=== PATIENT | female | born 1930 | race Caucasian/White ===

== ENCOUNTER 2017-02-26 23:53 | Inpatient (IN) | payer MEDICARE, OTHER ==
[~2017-02-26] VITALS: Ht 152.4 cm; Wt 86.3 kg
[~2017-02-26 23:53] MED LIST: ACET65TA OR; ADVI200T PO; ALBUTEROL NEB INH; ALPR0.5T3 PO; AMBI10TA OR; AMBI5TAB PO; AMLO10TA2 PO; ASPI325T PO; CEFT500T OR; DIOV320T OR; DIOV320T PO; HYDR10TAB PO; HYDR25TA6 PO; HYDR25TAB PO; IMDU30TA PO; ISOS30BRAN OR; LEVO2TA OR; LEVO50TA5 PO; LEVOXYL PO; MUCINEX OR; NITR0.4S SL; NITR4TASL SL; NYSTATIN ORAL SUSP OR; PAXI10TA OR; PRED10TA2 OR; SIMV20TA2 PO; SPIR25TA2 OR; TEKT300T PO; TEKTURNA PO; TOPR50TA OR; TOPRAL XL PO; VALS40TA OR; VESICARE OR; XANA0.5T OR; [UNRECOGNIZED DRUG - CODE] PO; [UNRECOGNIZED DRUG - OTHER] PO
[2017-02-27] MEDS ORDERED: ALLO100T PO (00:14)
[2017-02-27] MEDS ORDERED: CLOP75TA2 PO (00:14)
[2017-02-27] MEDS ORDERED: AMLO5TAB2 PO (00:14)
[2017-02-27] MEDS ORDERED: METO-207 PO (00:14)
[2017-02-27] MEDS ORDERED: ZOLP5TAB PO (00:14)
[2017-02-27] MEDS ORDERED: LEVO150T7 PO (00:14)
[2017-02-27] MEDS ORDERED: LATA5OPD OU (00:14)
[2017-02-27] MEDS ORDERED: VALS1TAB48 PO (00:14)
[2017-02-27] MEDS ORDERED: ESCI10TA2 (00:14)
[2017-02-27] MEDS ORDERED: ISOS60TA2 PO (00:14)
[2017-02-27] MEDS ORDERED: ACETAMINOPHEN TAB 650MG DOSE (2X325MG) PO ONE (00:15)
[2017-02-27] MEDS: IPRATROPIUM 0.5MG/ALBUTEROL 2.5MG INH SOL UD 3ML (DUONEB)(J7620) NEB SCH ×9 (00:44→23:32)
[2017-02-27 00:47] LABS: BASO % 0.2 % (0.0-1.0); EOS # 0.1 K/mm3 (0.0-0.50); EOS % 0.6 % (0.0-3.0); LARGE UNSTAINED CELL # 0.2 K/mm3 (0.0-0.4); LARGE UNSTAINED CELL % 1.2 % (0.0-4.0); LYMPH # 1.4 K/mm3 (1.5-4.5); LYMPH % 8.3 % (24.0-44.0); MEAN CORPUSCULAR HEMOGLOBIN 29.8 pg (27.0-33.0); MEAN CORPUSCULAR HGB CONC 32.8 g/dl (32.0-36.5); MEAN CORPUSCULAR VOLUME 90.9 fl (80.0-96.0); MONO # 0.6 K/mm3 (0.0-0.8); MONO % 3.9 % (0.0-5.0); NEUTROPHILS # 13.9 K/mm3 (1.8-7.7); NEUTROPHILS % 85.8 % (36.0-66.0); PLATELET COUNT, AUTOMATED 214 k/mm3 (150-450); RED CELL DISTRIBUTION WIDTH 14.2 % (11.5-14.5); WHITE BLOOD COUNT 16.2 K/mm3 (4.0-10.0)
[2017-02-27 01:08] LABS: CALCIUM LEVEL 8.9 MG/DL (8.8-10.2); CREATININE FOR GFR 1.19 MG/DL (0.55-1.02); GLOMERULAR FILTRATION RATE 45.8 (>32); POTASSIUM SERUM 3.9 MEQ/L (3.5-5.1)
[2017-02-27] MEDS ORDERED: CEFUROXIME SODIUM 750 MG in D5W MINI-BAG PLUS 50 ML IV ONE (01:15)
[2017-02-27] MEDS ORDERED: dexameTHASONE 20 MG/5 ML VIAL (J1100) IV ONE ×2 (01:15→01:30)
[2017-02-27] MEDS ORDERED: AZITHROMYCIN INJ 500 MG, VIAL MATE ADAPTER 1 EACH in D5W 250 ML IV ONE (01:15)
[2017-02-27] MEDS ORDERED: NS 500 ML IV ONE (01:30)
[2017-02-27] MEDS ORDERED: ALBUTEROL SULFATE 2.5 MG/0.5 ML INH NEB SOLN INH PRN (01:45)
[2017-02-27] MEDS ORDERED: ACETAMINOPHEN TAB 650MG DOSE (2X325MG) PO PRN (01:45)
[2017-02-27] MEDS ORDERED: ONDANSETRON 4MG/2ML VIAL (J2405) IV PRN (01:45)
[2017-02-27] MEDS ORDERED: OCUVTAB PO (01:57)
[2017-02-27] MEDS ORDERED: ARTI99.0 OU (01:57)
[2017-02-27] MEDS ORDERED: TYLE500T78 PO (01:57)
[2017-02-27] MEDS ORDERED: SIMV20TA2 PO (01:57)
--- NOTE | 2017-02-27 02:30 | REPUSA ---
CLINICAL HISTORY: SOB. TECHNIQUE: Multiple axial CT images were obtained through chest without IV contrast material. MPR cor onal and sagittal sequences were obtained. COMMENTS: There is no evidence of pleural or parenchymal mass. There are no pleural effusions. There is no evid ence of hilar or mediastinal lymphadenopathy. The heart is enlarged. MIld pulmonary venous congestiv e changes are seen. Coronary calcifications are noted. Mitral valve calcifications are seen. There are increased interstitial lung markings noted compatible with pulmonary fibrosis. The visualized portions of the liver are of uniform attenuation without mass or defect. There is no i ntra or extrahepatic biliary ductal dilatation. The spleen is unremarkable. The visualized pancreas i s of normal contour and attenuation characteristics. There is no evidence of adrenal mass. Bilateral renal cysts are noted. The bony structures are free of lytic or blastic lesions. Multilevel degenerative changes are seen in volving the thoracic spine. Scattered calcifications are seen involving the aorta and visualized laura r branches compatible with atherosclerosis. IMPRESSION: The heart is enlarged. MIld pulmonary venous congestive changes are seen. There are increased interstitial lung markings noted compatible with pulmonary fibrosis. Thank you for your kind referral of this patient.
[2017-02-27 02:42] VITALS: BP 163/83
[2017-02-27] MEDS ORDERED: NITROGLYCERIN 0.4 MG SUBL TABLET SL PRN (02:45)
[2017-02-27] MEDS ORDERED: POLYVINYL ALCOHOL OPHTH SOLN 15 ML(LIQUITEARS) OU PRN (02:45)
[2017-02-27] MEDS ORDERED: zolPIDEM TARTRATE 5 MG TAB PO PRN (02:45)
--- NOTE | 2017-02-27 02:45 | HPEPDOC ---
General Date of Admission Feb 27, 2017 at 01:58 Primary Care Physician: Jr Alvarenga Collins Attending Physician: JOSTIN SANTO MD Chief Complaint The patient is a 86-year-old female admitted with a reason for visit of Community Acquired Pneumonia. Source: Patient Exam Limitations: No limitations History of Present Illness 86-year-old female with past medical hypertension, dyslipidemia, CAD, hypothyroidism, anxiety/depression, remote history of asthma, chronic kidney disease, and gout presents to the ER with the chief complaint of progressive dyspnea and productive cough over the last 3-4 days. The patient states that during this time she has also felt febrile and an overall feeling of lethargy/ fatigue. She denies any sick contacts, recent travel, or any increase in lower extremity swelling, PND, or orthopnea. In addition, the patient denies any acute complaints of chest pain, palpitations, abdominal pain, or any nausea/ vomiting/diarrhea. In the ER, a chest x-ray was notable chronic interstitial changes and a possible infiltrate on the left. Clinically, the patient was requiring 4 L of oxygen via nasal cannula, when at baseline she does not require any oxygen at all. The patient will be admitted with a diagnosis of hypoxic respiratory failure secondary to community acquired pneumonia under the service of Dr. Santo, who will begin to follow the patient on 02/27/17 at 7 AM. Home Medications Scheduled Allopurinol (Allopurinol) 100 Mg Tab 100 MG PO DAILY (Reported) Amlodipine Besylate (Amlodipine Besylate) 5 Mg Tab 5 MG PO DAILY (Reported) Clopidogrel Bisulfate (Clopidogrel) 75 Mg Tab 75 MG PO DAILY (Reported) Isosorbide Mononitrate (Isosorbide Mononitrate ER) 60 Mg Tab 60 MG PO DAILY ( Reported) Latanoprost (Latanoprost) 50 Drop/2.5 Ml Soln 1 DROP OU QHS (Reported) Levothyroxine Sodium (Synthroid) 150 Mcg Tab 150 MCG PO DAILY (Reported) Metoprolol Succinate (Metoprolol Succinate ER) 50 Mg Tab 50 MG PO DAILY ( Reported) LUNCHTIME Multivitamins (Ocuvite) 1 Tab Tab 1 TAB PO DAILY (Reported) Simvastatin (Simvastatin) 20 Mg Tab 20 MG PO DAILY (Reported) LUNCHTIME Valsartan (Valsartan) 320 Mg Tab 320 MG PO DAILY (Reported) Scheduled PRN Acetaminophen (Tylenol Extra Strength) 500 Mg Tab 1,000 MG PO Q6H PRN PRN PAIN ( Reported) Alprazolam (Alprazolam) 0.5 Mg Tab 0.5 MG PO QID PRN PRN ANXIETY (Reported) Artificial Tears (Artificial Tears) 1.4 % Margot 1 DROP OU QID PRN PRN DRY EYES ( Reported) Nitroglycerin (Nitrostat) 0.4 Mg Subl 0.4 MG SL NITRO PRN PRN CHEST PAIN ( Reported) Zolpidem Tartrate (Zolpidem Tartrate) 5 Mg Tab 5 MG PO QHS PRN PRN SLEEP ( Reported) Allergies Coded Allergies: Sulfa Drugs (Verified Adverse Reaction, Intermediate, PASSES OUT, 02/07/13) Sulfa Drugs Cross Reactors (Verified Adverse Reaction, Intermediate, PASSES OUT, 02/07/13) Past Medical History Medical History As noted in HPI. Surgical History Bilateral knee surgery, cholecystectomy Family History Significant Family History: No pertinent family hx Social History * Smoker: other (smoked half a pack a day for 40+ years, quit smoking 25 years ago.) Alcohol: Denies Drugs: denies Lives at home alone, is independent with her activities of daily living, does not require any assistive devices for ambulation. Review of Symptoms Other systems 10 point review of systems negative unless otherwise specified in HPI. Physical Examination General Exam: Positive: Alert, Cooperative, No Acute Distress ENT Exam: Positive: Atraumatic, Mucous membr. moist/pink Neck Exam: Negative: JVD Chest Exam: Positive: Diminished, Other (faint bibasilar crackles noted), Rhonchi, Wheezing Heart Exam: Positive: Normal S1, Normal S2, Tachycardic Telemetry: Positive: Sinus Abdomen Exam: Positive: Soft, Negative: Tenderness Extremity Exam: Negative: Swelling, Tenderness Psych Exam: Positive: Oriented x 3 Vital Signs Vital Signs Date Time Temp Pulse Resp B/P Pulse Ox O2 Delivery O2 Flow Rate FiO2 02/27/17 02:15 24 98 Nasal Cannula 4 02/27/17 01:54 98.3 02/27/17 00:00 105 139/86 Laboratory Data Labs 24H Laboratory Tests 2 02/27/17 00:26: Anion Gap 9, White Blood Count 16.2H, Red Blood Count 3.91L, Hemoglobin 11.6L, Hematocrit 35.5L, Mean Corpuscular Volume 90.9, Mean Corpuscular Hemoglobin 29.8 , Mean Corpuscular Hemoglobin Concent 32.8, Red Cell Distribution Width 14.2, Platelet Count 214, Neutrophils (%) (Auto) 85.8H, Lymphocytes (%) (Auto) 8.3L, Monocytes (%) (Auto) 3.9, Eosinophils (%) (Auto) 0.6, Basophils (%) (Auto) 0.2, Neutrophils # (Auto) 13.9H, Lymphocytes # (Auto) 1.4L, Monocytes # (Auto) 0.6, Eosinophils # (Auto) 0.1, Basophils # (Auto) 0.0, Blood Urea Nitrogen 28H, Creatinine 1.19H, Sodium Level 140, Potassium Level 3.9, Chloride Level 106, Carbon Dioxide Level 25, Calcium Level 8.9, Glomerular Filtration Rate 45.8, Lactic Acid Level 2.1*H, Large Unclassified Cells # 0.2, Large Unclassified Cells % 1.2 CBC/BMP Laboratory Tests 02/27/17 00:26 Calcium Level 8.9, Red Blood Count 3.91 L, Mean Corpuscular Volume 90.9, Mean Corpuscular Hemoglobin 29.8, Mean Corpuscular Hemoglobin Concent 32.8, Red Cell Distribution Width 14.2, Neutrophils (%) (Auto) 85.8 H, Lymphocytes (%) (Auto) 8.3 L, Monocytes (%) (Auto) 3.9, Eosinophils (%) (Auto) 0.6, Basophils (%) (Auto ) 0.2, Neutrophils # (Auto) 13.9 H, Lymphocytes # (Auto) 1.4 L, Monocytes # ( Auto) 0.6, Eosinophils # (Auto) 0.1, Basophils # (Auto) 0.0 Microbiology Microbiology 02/27/17 Blood Culture, Received Pending 02/27/17 Blood Culture, Received Pending 02/27/17 Influenza Virus Type A Antigen - Final, Complete 02/27/17 Influenza Virus Type B Antigen - Final, Complete Plan / VTE VTE Prophylaxis Ordered?: Yes Plan Plan Hypoxic respiratory failure likely secondary to Community-Acquired Pneumonia, underlying interstitial lung disease Chest x-ray notable for changes consistent with chronic interstitial lung disease Blood cultures, sputum cultures, respiratory panel ordered We will empirically start the patient on Rocephin and azithromycin Nebs, Acapella, incentive spirometry order Status post one-time dose of IV dexamethasone in the ER given the patient's remote history of asthma, and wheezing on exam CT scan of the chest ordered for further delineation of underlying disease process We will continue to monitor the patient's respiratory status and down titrate supplemental oxygen as titrated Leukocytosis, lactic acidosis Likely secondary to above, and increased work of breathing Cultures have been ordered, and empiric antibody therapy has been initiated Gentle IV fluid hydration We will follow-up on a repeat lactic acid level, and await culture results Hypertension, stable Continue Norvasc, valsartan, metoprolol Dyslipidemia Continue statin CAD, stable Denies any chest pain, EKG with no acute ST changes Continue Plavix, metoprolol, statin Hypothyroidism Continue levothyroxine Anxiety/depression Continue current regimen as ordered Remote history of asthma Albuterol ordered as noted above Chronic kidney disease Serum creatinine appears to be at baseline Gout Continue allopurinol DVT prophylaxis-heparin subcutaneously The patient will be admitted under the service of Dr. Santo, who will begin to follow the patient on 02/27/17 at 7am Update--Respiratory Panel positive for Parainfluenza. At this time we will discontinue antibiotics and provide supportive treatment. URI RITTER MD Feb 27, 2017 02:45
[2017-02-27] MEDS: ALPRAZolam 0.5 MG TAB PO PRN ×2 (02:57→21:27)
[2017-02-27] MEDS: NS 1,000 ML IV SCH ×2 (02:58→16:03)
[2017-02-27 05:37] LABS: MEAN CORPUSCULAR HEMOGLOBIN 29.2 pg (27.0-33.0); MEAN CORPUSCULAR HGB CONC 32.6 g/dl (32.0-36.5); MEAN CORPUSCULAR VOLUME 89.6 fl (80.0-96.0); WHITE BLOOD COUNT 17.1 K/mm3 (4.0-10.0)
[2017-02-27] MEDS ORDERED: FUROSEMIDE 20 MG/2 ML VIAL (J1940) IV ONE (05:45)
[2017-02-27 05:50] LABS: CALCIUM LEVEL 8.3 MG/DL (8.8-10.2); CREATININE FOR GFR 1.32 MG/DL (0.55-1.02); GLOMERULAR FILTRATION RATE 40.6 (>32); MAGNESIUM LEVEL 1.4 MG/DL (1.8-2.4); POTASSIUM SERUM 3.6 MEQ/L (3.5-5.1)
[2017-02-27 06:00] VITALS: BP 131/63
[2017-02-27] MEDS ORDERED: cefTRIAXone SOD 1 GM in D5W MINI-BAG PLUS 50 ML IV SCH (06:00)
[2017-02-27] MEDS: HEPARIN SOD (PORCINE) 5000 UNITS/ML VIAL SC SCH ×3 (06:15→21:27)
[2017-02-27] MEDS: LEVOTHYROXINE 0.15 MG TAB (150 MCG) PO SCH (06:15)
--- NOTE | 2017-02-27 08:08 | REP ---
Portable chest, single frontal view, patient sitting: Comparisons 09/29/2015. There is chronic cardiomegaly. There is mild interstitial coarsening, decreased from the prior study. No pleural effusions are identified. Signed by Brandon Ramirez MD 02/27/2017 07:59 A
[2017-02-27] MEDS: OCUVITE 1 TAB PO SCH (08:47)
[2017-02-27] MEDS: methylPREDNISolone INJ 40 MG/1 ML VIAL (J2920) IV SCH ×2 (08:47→21:27)
[2017-02-27] MEDS: ALLOPURINOL 100 MG TAB PO SCH (08:47)
[2017-02-27] MEDS: METOPROLOL SUCC (TopROL XL) 50MG **XL** TAB PO SCH (08:48)
[2017-02-27] MEDS: amLODIPine 5 MG TAB PO SCH (08:48)
[2017-02-27] MEDS: ISOSORBIDE MON. (IMDUR) 60 MG XR TAB PO SCH (08:48)
[2017-02-27] MEDS: CLOPIDOGREL 75 MG TAB PO SCH (08:49)
[2017-02-27] MEDS: SIMVASTATIN 20 MG TAB PO SCH (08:49)
--- NOTE | 2017-02-27 11:38 | IPNPDOC ---
Subjective Date Seen The patient was seen on 02/27/17. Subjective Chief Complaint/HPI The patient is a 86-year-old female admitted with a reason for visit of Community Acquired Pneumonia. Events since last encounter still wheezing and SOB but says feels much better compared to yesterday, no fever or chills, still has wheezing, no chast pain, no abdominal pain nausea or vomiting. Objective Physical Examination General Exam: Positive: Alert, Cooperative, No Acute Distress ENT Exam: Positive: Atraumatic, Mucous membr. moist/pink Neck Exam: Negative: JVD Chest Exam: Positive: Diminished, Other (faint bibasilar crackles noted), Rhonchi, Wheezing Heart Exam: Positive: Normal S1, Normal S2, Tachycardic Telemetry: Positive: Sinus Abdomen Exam: Positive: Soft, Negative: Tenderness Extremity Exam: Negative: Swelling, Tenderness Psych Exam: Positive: Oriented x 3 Assessment /Plan Problems (1) Parainfluenza infection Status: Acute Problem Text: CT chest did not show any pneumonia. so antibiotics dced. (2) Acute respiratory failure with hypoxia Status: Acute Problem Text: due to PArainfluenza causing acute bronchospasm will continue with nebs, steroids. will continue with oxygen (3) Lactic acidosis Status: Acute Problem Text: due to increased work of breathing will continue with ivf and treatment for acute respiratory failure. (4) HTN (hypertension) Status: Chronic (5) Aortic stenosis Status: Chronic (6) Pulmonary HTN Status: Chronic (7) Gout Status: Chronic (8) CAD (coronary artery disease) Status: Chronic (9) CKD (chronic kidney disease), stage III Status: Chronic (10) Hypothyroid Status: Chronic Plan/VTE VTE Prophylaxis Ordered?: Yes VS, I&O, 24H, [facility] Signs/I&O Vital Signs Date Time Temp Pulse Resp B/P Pulse Ox O2 Delivery O2 Flow Rate FiO2 02/27/17 08:48 92 134/63 02/27/17 06:00 97.3 20 97 Nasal Cannula 1.0 I&O- Last 24 Hours up to 6 AM 02/27/17 06:00 Intake Total 170 ml Output Total 0 ml Balance 170 ml Laboratory Data 24H LABS Laboratory Tests 2 02/27/17 00:26: Anion Gap 9, White Blood Count 16.2H, Red Blood Count 3.91L, Hemoglobin 11.6L, Hematocrit 35.5L, Mean Corpuscular Volume 90.9, Mean Corpuscular Hemoglobin 29.8 , Mean Corpuscular Hemoglobin Concent 32.8, Red Cell Distribution Width 14.2, Platelet Count 214, Neutrophils (%) (Auto) 85.8H, Lymphocytes (%) (Auto) 8.3L, Monocytes (%) (Auto) 3.9, Eosinophils (%) (Auto) 0.6, Basophils (%) (Auto) 0.2, Neutrophils # (Auto) 13.9H, Lymphocytes # (Auto) 1.4L, Monocytes # (Auto) 0.6, Eosinophils # (Auto) 0.1, Basophils # (Auto) 0.0, Blood Urea Nitrogen 28H, Creatinine 1.19H, Sodium Level 140, Potassium Level 3.9, Chloride Level 106, Carbon Dioxide Level 25, Calcium Level 8.9, Glomerular Filtration Rate 45.8, Lactic Acid Level 2.1*H, Large Unclassified Cells # 0.2, Large Unclassified Cells % 1.2 02/27/17 05:23: Anion Gap 11, Blood Urea Nitrogen 27H, Creatinine 1.32H, Sodium Level 138, Potassium Level 3.6, Chloride Level 105, Carbon Dioxide Level 22, Calcium Level 8.3L, Glomerular Filtration Rate 40.6, Lactic Acid Level 2.1*H, Magnesium Level 1.4L 02/27/17 09:45: Lactic Acid Followup at 4 Hours 2.8*H CBC/BMP Laboratory Tests 02/27/17 00:26 Calcium Level 8.9, Red Blood Count 3.91 L, Mean Corpuscular Volume 90.9, Mean Corpuscular Hemoglobin 29.8, Mean Corpuscular Hemoglobin Concent 32.8, Red Cell Distribution Width 14.2, Neutrophils (%) (Auto) 85.8 H, Lymphocytes (%) (Auto) 8.3 L, Monocytes (%) (Auto) 3.9, Eosinophils (%) (Auto) 0.6, Basophils (%) (Auto ) 0.2, Neutrophils # (Auto) 13.9 H, Lymphocytes # (Auto) 1.4 L, Monocytes # ( Auto) 0.6, Eosinophils # (Auto) 0.1, Basophils # (Auto) 0.0 02/27/17 05:23 Calcium Level 8.3 L, Red Blood Count 3.58 L, Mean Corpuscular Volume 89.6, Mean Corpuscular Hemoglobin 29.2, Mean Corpuscular Hemoglobin Concent 32.6, Red Cell Distribution Width 14.0 Microbiology Microbiology 02/27/17 Blood Culture, Received Pending 02/27/17 Blood Culture, Received Pending 02/27/17 Respiratory Virus Panel (PCR) ([facility]) - Final, Complete Parainfluenza 3 (Piv3) 02/27/17 Influenza Virus Type A Antigen - Final, Complete 02/27/17 Influenza Virus Type B Antigen - Final, Complete JOSTIN YAO MD Feb 27, 2017 11:38
[2017-02-27] MEDS: MAG SULF 1GM/100ML (MAG RUN) 1 GM in APPROPRIATE DILUENT 1 EA IV SCH ×2 (12:34→13:33)
[2017-02-27 14:00] VITALS: BP 126/58
[2017-02-27] MEDS: CEPACOL LOZENGE PO PRN ×2 (16:04→22:05)
[2017-02-27 20:45] VITALS: BP 163/73
[2017-02-27] MEDS: LATANOPROST 0.005% OPHTH SOLN 2.5 ML OU SCH (21:26)
[2017-02-28] MEDS ORDERED: AZITHROMYCIN INJ 500 MG, VIAL MATE ADAPTER 1 EACH in D5W 250 ML IV SCH ×3
[2017-02-28] MEDS: IPRATROPIUM 0.5MG/ALBUTEROL 2.5MG INH SOL UD 3ML (DUONEB)(J7620) NEB SCH ×6 (03:05→23:34)
[2017-02-28] MEDS ORDERED: FUROSEMIDE 40 MG/4 ML VIAL (J1940) IV ONE (04:15)
[2017-02-28] MEDS: LEVOTHYROXINE 0.15 MG TAB (150 MCG) PO SCH (05:24)
[2017-02-28] MEDS: HEPARIN SOD (PORCINE) 5000 UNITS/ML VIAL SC SCH ×3 (05:24→20:57)
[2017-02-28 06:00] VITALS: BP 146/67
[2017-02-28 06:00] LABS: MEAN CORPUSCULAR HEMOGLOBIN 28.8 pg (27.0-33.0); MEAN CORPUSCULAR HGB CONC 32.2 g/dl (32.0-36.5); MEAN CORPUSCULAR VOLUME 89.3 fl (80.0-96.0); RED CELL DISTRIBUTION WIDTH 14.2 % (11.5-14.5); WHITE BLOOD COUNT 20.6 K/mm3 (4.0-10.0)
[2017-02-28 06:11] LABS: CALCIUM LEVEL 8.6 MG/DL (8.8-10.2); CREATININE FOR GFR 1.21 MG/DL (0.55-1.02); GLOMERULAR FILTRATION RATE 44.9 (>32); POTASSIUM SERUM 4.1 MEQ/L (3.5-5.1)
--- NOTE | 2017-02-28 07:51 | IPNPDOC ---
Subjective Date Seen The patient was seen on 02/28/17. Subjective Chief Complaint/HPI The patient is a 86-year-old female admitted with a reason for visit of Community Acquired Pneumonia. Events since last encounter says feeling much better, though continues to have wheezing. no fever or chills , no chest pain , sob improving, no nausea or vomiting or diarrhea. Objective Physical Examination General Exam: Positive: Alert, Cooperative, No Acute Distress ENT Exam: Positive: Atraumatic, Mucous membr. moist/pink Neck Exam: Negative: JVD Chest Exam: Positive: Diminished, Other (faint bibasilar crackles noted), Rhonchi, Wheezing Heart Exam: Positive: Normal S1, Normal S2, Tachycardic Telemetry: Positive: Sinus Abdomen Exam: Positive: Soft, Negative: Tenderness Extremity Exam: Negative: Swelling, Tenderness Psych Exam: Positive: Oriented x 3 Assessment /Plan Problems (1) Parainfluenza infection Status: Acute Problem Text: CT chest did not show any pneumonia. so antibiotics dced. (2) Acute respiratory failure with hypoxia Status: Acute Problem Text: due to PArainfluenza causing acute bronchospasm will continue with nebs, steroids. will continue with oxygen (3) Lactic acidosis Status: Resolved Problem Text: due to increased work of breathing will continue with ivf and treatment for acute respiratory failure. (4) HTN (hypertension) Status: Chronic (5) Aortic stenosis Status: Chronic (6) Pulmonary HTN Status: Chronic (7) Gout Status: Chronic (8) CAD (coronary artery disease) Status: Chronic (9) CKD (chronic kidney disease), stage III Status: Chronic (10) Hypothyroid Status: Chronic Plan/VTE VTE Prophylaxis Ordered?: Yes Plan/Urinary Catheter Reason for insertion/continuin: Other-document below VS, I&O, 24H, Fishbone Vital Signs/I&O Vital Signs Date Time Temp Pulse Resp B/P Pulse Ox O2 Delivery O2 Flow Rate FiO2 02/28/17 06:00 98.9 97 19 146/67 97 Nasal Cannula 2.0 I&O- Last 24 Hours up to 6 AM 02/28/17 06:00 Intake Total 2925 ml Output Total 950 ml Balance 1975 ml Laboratory Data 24H LABS Laboratory Tests 2 02/27/17 09:45: Lactic Acid Followup at 4 Hours 2.8*H 02/27/17 15:59: Lactic Acid Level 3.3*H 02/27/17 21:30: Lactic Acid Level 1.4 02/28/17 05:41: Anion Gap 8, Blood Urea Nitrogen 30H, Creatinine 1.21H, Sodium Level 139, Potassium Level 4.1, Chloride Level 109H, Carbon Dioxide Level 22, Calcium Level 8.6L, Glomerular Filtration Rate 44.9, Magnesium Level 2.0 CBC/BMP Laboratory Tests 02/28/17 05:41 Calcium Level 8.6 L, Red Blood Count 3.33 L, Mean Corpuscular Volume 89.3, Mean Corpuscular Hemoglobin 28.8, Mean Corpuscular Hemoglobin Concent 32.2, Red Cell Distribution Width 14.2 Microbiology Microbiology 02/27/17 Blood Culture - Preliminary, Resulted No growth after 24 hours . All specim... 02/27/17 Blood Culture - Preliminary, Resulted No growth after 24 hours . All specim... 02/27/17 Gram Stain - Final, Resulted 02/27/17 Sputum Culture, Resulted Pending 02/27/17 Respiratory Virus Panel (PCR) ([facility]) - Final, Complete Parainfluenza 3 (Piv3) 02/27/17 Influenza Virus Type A Antigen - Final, Complete 02/27/17 Influenza Virus Type B Antigen - Final, Complete JOSTIN YAO MD Feb 28, 2017 07:51
[2017-02-28] MEDS: ISOSORBIDE MON. (IMDUR) 60 MG XR TAB PO SCH (09:00)
[2017-02-28] MEDS: methylPREDNISolone INJ 40 MG/1 ML VIAL (J2920) IV SCH ×2 (09:18→20:56)
[2017-02-28] MEDS: OCUVITE 1 TAB PO SCH (09:18)
[2017-02-28] MEDS: CLOPIDOGREL 75 MG TAB PO SCH (09:19)
[2017-02-28] MEDS: amLODIPine 5 MG TAB PO SCH (09:21)
[2017-02-28] MEDS: SIMVASTATIN 20 MG TAB PO SCH (09:21)
[2017-02-28] MEDS: ALLOPURINOL 100 MG TAB PO SCH (09:21)
[2017-02-28] MEDS: METOPROLOL SUCC (TopROL XL) 50MG **XL** TAB PO SCH (09:22)
[2017-02-28 14:00] VITALS: BP 133/64
[2017-02-28] MEDS: LATANOPROST 0.005% OPHTH SOLN 2.5 ML OU SCH (20:56)
[2017-02-28] MEDS: ALPRAZolam 0.5 MG TAB PO PRN (20:57)
[2017-02-28 22:00] VITALS: BP 129/56
[2017-02-28 22:25] VITALS: BP 181/51
[2017-03-01] MEDS: IPRATROPIUM 0.5MG/ALBUTEROL 2.5MG INH SOL UD 3ML (DUONEB)(J7620) NEB SCH ×5 (03:12→19:54)
[2017-03-01] MEDS: HEPARIN SOD (PORCINE) 5000 UNITS/ML VIAL SC SCH ×3 (05:58→21:16)
[2017-03-01] MEDS: LEVOTHYROXINE 0.15 MG TAB (150 MCG) PO SCH (05:58)
[2017-03-01 06:00] VITALS: BP 142/72
[2017-03-01 07:04] LABS: MEAN CORPUSCULAR HEMOGLOBIN 28.4 pg (27.0-33.0); MEAN CORPUSCULAR VOLUME 88.6 fl (80.0-96.0); RED CELL DISTRIBUTION WIDTH 14.2 % (11.5-14.5); WHITE BLOOD COUNT 16.8 K/mm3 (4.0-10.0)
[2017-03-01 07:07] LABS: CALCIUM LEVEL 8.9 MG/DL (8.8-10.2); CREATININE FOR GFR 1.14 MG/DL (0.55-1.02); GLOMERULAR FILTRATION RATE 48.1 (>32); POTASSIUM SERUM 4.5 MEQ/L (3.5-5.1)
[2017-03-01] MEDS: OCUVITE 1 TAB PO SCH (09:16)
[2017-03-01] MEDS: CLOPIDOGREL 75 MG TAB PO SCH (09:16)
[2017-03-01] MEDS: methylPREDNISolone INJ 40 MG/1 ML VIAL (J2920) IV SCH ×2 (09:16→21:15)
[2017-03-01] MEDS: ALLOPURINOL 100 MG TAB PO SCH (09:17)
[2017-03-01] MEDS: SIMVASTATIN 20 MG TAB PO SCH (09:17)
[2017-03-01] MEDS: METOPROLOL SUCC (TopROL XL) 50MG **XL** TAB PO SCH (09:18)
[2017-03-01] MEDS: amLODIPine 5 MG TAB PO SCH (09:18)
[2017-03-01] MEDS: VALSARTAN 80 MG TAB (DIOVAN) PO SCH (09:19)
[2017-03-01] MEDS: ISOSORBIDE MON. (IMDUR) 60 MG XR TAB PO SCH (09:19)
[2017-03-01 14:00] VITALS: BP 136/66
[2017-03-01] MEDS ORDERED: MOM 30ML SUSPENSION UDC PO PRN (15:00)
[2017-03-01] MEDS ORDERED: MIRALAX *UNIT DOSE* 17GM PACKET PO PRN (15:00)
[2017-03-01] MEDS: DOCUSATE SODIUM 100 MG CAP PO SCH (21:15)
[2017-03-01] MEDS: LATANOPROST 0.005% OPHTH SOLN 2.5 ML OU SCH (21:15)
[2017-03-01] MEDS: ALPRAZolam 0.5 MG TAB PO PRN (21:35)
[2017-03-01 22:00] VITALS: BP 146/77
[2017-03-02] MEDS: IPRATROPIUM 0.5MG/ALBUTEROL 2.5MG INH SOL UD 3ML (DUONEB)(J7620) NEB SCH ×7 (00:23→23:32)
[2017-03-02] MEDS: LEVOTHYROXINE 0.15 MG TAB (150 MCG) PO SCH (05:38)
[2017-03-02] MEDS: HEPARIN SOD (PORCINE) 5000 UNITS/ML VIAL SC SCH ×3 (05:39→21:03)
[2017-03-02 06:00] VITALS: BP 141/85
[2017-03-02 07:19] LABS: MEAN CORPUSCULAR HEMOGLOBIN 28.5 pg (27.0-33.0); MEAN CORPUSCULAR HGB CONC 31.9 g/dl (32.0-36.5); MEAN CORPUSCULAR VOLUME 89.1 fl (80.0-96.0); RED CELL DISTRIBUTION WIDTH 14.2 % (11.5-14.5); WHITE BLOOD COUNT 11.5 K/mm3 (4.0-10.0)
[2017-03-02 07:33] LABS: CALCIUM LEVEL 9.5 MG/DL (8.8-10.2); CREATININE FOR GFR 1.27 MG/DL (0.55-1.02); GLOMERULAR FILTRATION RATE 42.5 (>32); MAGNESIUM LEVEL 2.3 MG/DL (1.8-2.4)
[2017-03-02] MEDS: VALSARTAN 80 MG TAB (DIOVAN) PO SCH (09:01)
[2017-03-02] MEDS: methylPREDNISolone INJ 40 MG/1 ML VIAL (J2920) IV SCH (09:01)
[2017-03-02] MEDS: OCUVITE 1 TAB PO SCH (09:01)
[2017-03-02] MEDS: DOCUSATE SODIUM 100 MG CAP PO SCH ×2 (09:01→21:03)
[2017-03-02] MEDS: SIMVASTATIN 20 MG TAB PO SCH (09:01)
[2017-03-02] MEDS: amLODIPine 5 MG TAB PO SCH (09:02)
[2017-03-02] MEDS: ALLOPURINOL 100 MG TAB PO SCH (09:02)
[2017-03-02] MEDS: ISOSORBIDE MON. (IMDUR) 60 MG XR TAB PO SCH (09:03)
[2017-03-02] MEDS: CLOPIDOGREL 75 MG TAB PO SCH (09:03)
[2017-03-02] MEDS: METOPROLOL SUCC (TopROL XL) 50MG **XL** TAB PO SCH (09:03)
[2017-03-02] MEDS: ALPRAZolam 0.5 MG TAB PO PRN (13:50)
[2017-03-02 13:51] VITALS: BP 142/86
--- NOTE | 2017-03-02 16:59 | IPNPDOC ---
Subjective Date Seen The patient was seen on 03/02/17. Subjective Chief Complaint/HPI The patient is a 86-year-old female admitted with a reason for visit of Community Acquired Pneumonia. Objective Physical Examination General Exam: Positive: Alert, Cooperative, No Acute Distress ENT Exam: Positive: Atraumatic, Mucous membr. moist/pink Neck Exam: Negative: JVD Chest Exam: Positive: Rhonchi, Wheezing, Diminished, Other (faint bibasilar crackles noted) Heart Exam: Positive: Tachycardic, Normal S1, Normal S2 Telemetry: Positive: Sinus Abdomen Exam: Positive: Soft, Negative: Tenderness Extremity Exam: Negative: Tenderness, Swelling Psych Exam: Positive: Oriented x 3 Assessment /Plan Problems (1) Parainfluenza infection Status: Acute Problem Text: CT chest did not show any pneumonia. so antibiotics dced. (2) Acute respiratory failure with hypoxia Status: Acute Problem Text: due to PArainfluenza causing acute bronchospasm will continue with nebs, steroids. will continue with oxygen (3) Lactic acidosis Status: Resolved Problem Text: due to increased work of breathing will continue with ivf and treatment for acute respiratory failure. (4) HTN (hypertension) Status: Chronic (5) Aortic stenosis Status: Chronic (6) Pulmonary HTN Status: Chronic (7) Gout Status: Chronic (8) CAD (coronary artery disease) Status: Chronic (9) CKD (chronic kidney disease), stage III Status: Chronic (10) Hypothyroid Status: Chronic Plan/VTE VTE Prophylaxis Ordered?: Yes Plan/Urinary Catheter Reason for insertion/continuin: Other-document below VS, I&O, 24H, Fishbone Vital Signs/I&O Vital Signs Date Time Temp Pulse Resp B/P (MAP) Pulse Ox O2 Delivery O2 Flow Rate FiO2 03/02/17 14:00 97.9 102 20 93 Nasal Cannula 03/02/17 13:51 142/86 (104) 03/02/17 09:20 1.0 I&O- Last 24 Hours up to 6 AM 03/02/17 06:00 Intake Total 480 ml Output Total 950 ml Balance -470 ml Laboratory Data 24H LABS Laboratory Tests 2 03/02/17 06:47: Anion Gap 5L, Glomerular Filtration Rate 42.5, Blood Urea Nitrogen 51H, Creatinine 1.27H, Sodium Level 141, Potassium Level 5.0, Chloride Level 107, Carbon Dioxide Level 29, Calcium Level 9.5, Magnesium Level 2.3 CBC/BMP Laboratory Tests 03/02/17 06:47 Red Blood Count 3.27 L, Mean Corpuscular Volume 89.1, Mean Corpuscular Hemoglobin 28.5, Mean Corpuscular Hemoglobin Concent 31.9 L, Red Cell Distribution Width 14.2, Calcium Level 9.5 Microbiology Microbiology 02/27/17 Blood Culture - Preliminary, Resulted No Growth after 72 hours. All specime... 02/27/17 Blood Culture - Preliminary, Resulted No Growth after 72 hours. All specime... 02/27/17 Gram Stain - Final, Complete 02/27/17 Sputum Culture - Final, Complete 02/27/17 Respiratory Virus Panel (PCR) ([facility]) - Final, Complete Parainfluenza 3 (Piv3) 02/27/17 Influenza Virus Type A Antigen - Final, Complete 02/27/17 Influenza Virus Type B Antigen - Final, Complete AGUEDA NARANJO DO Mar 02, 2017 16:59
[2017-03-02] MEDS: LATANOPROST 0.005% OPHTH SOLN 2.5 ML OU SCH (21:04)
[2017-03-02 22:00] VITALS: BP 133/60
[2017-03-03] MEDS: IPRATROPIUM 0.5MG/ALBUTEROL 2.5MG INH SOL UD 3ML (DUONEB)(J7620) NEB SCH ×3 (03:07→11:21)
[2017-03-03] MEDS: HEPARIN SOD (PORCINE) 5000 UNITS/ML VIAL SC SCH (05:46)
[2017-03-03] MEDS: LEVOTHYROXINE 0.15 MG TAB (150 MCG) PO SCH (05:46)
[2017-03-03 06:00] VITALS: BP 158/90
[2017-03-03 06:55] LABS: MEAN CORPUSCULAR HEMOGLOBIN 28.7 pg (27.0-33.0); MEAN CORPUSCULAR HGB CONC 32.5 g/dl (32.0-36.5); MEAN CORPUSCULAR VOLUME 88.3 fl (80.0-96.0); RED CELL DISTRIBUTION WIDTH 14.1 % (11.5-14.5); WHITE BLOOD COUNT 13.3 K/mm3 (4.0-10.0)
[2017-03-03 07:13] LABS: CALCIUM LEVEL 9.3 MG/DL (8.8-10.2); CREATININE FOR GFR 1.16 MG/DL (0.55-1.02); GLOMERULAR FILTRATION RATE 47.2 (>32); MAGNESIUM LEVEL 2.2 MG/DL (1.8-2.4)
[2017-03-03] MEDS: CLOPIDOGREL 75 MG TAB PO SCH (08:54)
[2017-03-03] MEDS: DOCUSATE SODIUM 100 MG CAP PO SCH (08:54)
[2017-03-03] MEDS: OCUVITE 1 TAB PO SCH (08:54)
[2017-03-03 08:55] VITALS: BP 144/96
[2017-03-03] MEDS: ALLOPURINOL 100 MG TAB PO SCH (08:55)
[2017-03-03] MEDS: ISOSORBIDE MON. (IMDUR) 60 MG XR TAB PO SCH (08:55)
[2017-03-03] MEDS: SIMVASTATIN 20 MG TAB PO SCH (08:55)
[2017-03-03] MEDS: amLODIPine 5 MG TAB PO SCH (08:55)
[2017-03-03] MEDS: VALSARTAN 80 MG TAB (DIOVAN) PO SCH (08:56)
[2017-03-03] MEDS: METOPROLOL SUCC (TopROL XL) 50MG **XL** TAB PO SCH (08:56)
[2017-03-03] MEDS ORDERED: methylPREDNISolone 4 MG TAB PO SCH (09:00)
[2017-03-03] MEDS ORDERED: MEDR4PAK PO (11:10)
[2017-03-03] MEDS ORDERED: AMLO5TAB2 PO (13:19)
== END 2017-03-03 13:18 | disposition home health service (06) | DRG 193 ==
LOC: EDBD 23:53 → M ED 02-27 01:57 → M ED INP 02-27 01:58 → M MSPAV 02-27 02:41
PROVIDERS: ADMIT Internal Medicine; ATTEND Internal Medicine
DX: J10.1 Influenza due to other identified influenza virus with other respiratory manifestations (principal); J96.01 Acute respiratory failure with hypoxia; J84.9 Interstitial pulmonary disease, unspecified; E87.2 Acidosis; I12.9 Hypertensive chronic kidney disease with stage 1 through stage 4 chronic kidney disease, or unspecified chronic kidney disease; I25.10 Atherosclerotic heart disease of native coronary artery without angina pectoris; E03.9 Hypothyroidism, unspecified; B34.9 Viral infection, unspecified; D72.829 Elevated white blood cell count, unspecified; I35.0 Nonrheumatic aortic (valve) stenosis; E78.5 Hyperlipidemia, unspecified; I27.2 Other secondary pulmonary hypertension; F41.9 Anxiety disorder, unspecified; F32.9 Major depressive disorder, single episode, unspecified; N18.3 Chronic kidney disease, stage 3 (moderate); M10.9 Gout, unspecified; Z79.899 Other long term (current) drug therapy; Z88.2 Allergy status to sulfonamides; Z87.891 Personal history of nicotine dependence; Z79.02 Long term (current) use of antithrombotics/antiplatelets